=== PATIENT | male | born 1975 | race Hispanic/Latino ===

== ENCOUNTER 2017-05-14 22:14 | Emergency (ER) | payer OTHER ==
[2017-05-14 22:27] VITALS: RESP 20
[2017-05-14 22:41] LABS: BASO % 0.4 % (0.0-2.0); EOS # 0.2 K/uL (0.0-0.7); EOS % 2.6 % (0.0-4.0); HEMATOCRIT 40.9 % (35.0-51.0); LYMPH # 2.5 K/uL (1.0-4.3); LYMPH % 31.7 % (20.0-40.0); MEAN CELL VOLUME 90.9 fL (80.0-94.0); MEAN CORPUSCULAR HEMOGLOBIN 30.7 pg (27.0-31.0); MEAN CORPUSCULAR HGB CONC 33.8 g/dL (33.0-37.0); MEAN PLATELET VOLUME 9.5 fL (7.2-11.7); MONO # 0.9 K/uL (0.0-0.8); NRBC % 0.1 % (0.0-2.0); RED CELL DISTRIBUTION WIDTH 13.2 % (11.5-14.5); WHITE BLOOD COUNT 7.8 K/uL (4.8-10.8)
--- NOTE | 2017-05-14 22:44 | C.PDOC ---
History Of Present Illness The patient is brought to the ED by EMS for evaluation after he smoked marijuana and ingested some unknown pills for the first time earlier today. Patient became agitated at first and is refusing to answer any questions. Patient denies suicidal/homicidal ideation at this time. Time Seen by Provider: 05/14/17 22:44 Chief Complaint (Nursing): Substance Abuse History Per: Patient, EMS History/Exam Limitations: no limitations Onset/Duration Of Symptoms: Hrs Current Symptoms Are (Timing): Still Present Suicide/Self Injury Attempted (Context): None Modifying Factor(s): Marijuana, Other (unknown pills ) Severity: None Pain Scale Rating Of: 0 Associated Symptoms: Agitation. denies: Suicidal Thoughts, Suicidal Plan Involuntary Hold By: None Recent travel outside of the [place]: No Additional History Per: Patient Past Medical History Reviewed: Historical Data, Nursing Documentation, Vital Signs Vital Signs: Last Vital Signs Temp 98.2 F 05/15/17 00:18 Pulse 88 05/15/17 00:18 Resp 20 05/15/17 00:18 BP 135/80 05/15/17 00:18 Pulse Ox 100 05/15/17 00:18 - Medical History PMH: Anxiety, Benign Prostatic Hyperplasia, Depression, HTN Surgical History: No Surg Hx Family History: States: Hypertension - Social History Hx Alcohol Use: Yes Hx Substance Use: Yes Review Of Systems Constitutional: Negative for: Fever, Chills Cardiovascular: Negative for: Chest Pain, Palpitations Respiratory: Negative for: Cough, Shortness of Breath Gastrointestinal: Negative for: Nausea, Vomiting, Abdominal Pain Skin: Negative for: Rash, Lesions, Jaundice, Bruising Psych: Positive for: Other (agitation). Negative for: Suicidal ideation Physical Exam - Physical Exam Appears: Non-toxic, No Acute Distress Skin: Warm, Dry Head: Normacephalic Eye(s): bilateral: Normal Inspection Oral Mucosa: Moist Lips: Other (dry) Neck: Supple Chest: Symmetrical, No Deformity, No Tenderness Cardiovascular: Rhythm Regular, No Murmur Respiratory: No Rales, No Rhonchi, No Wheezing Gastrointestinal/Abdominal: Soft, No Tenderness, No Distention Back: Normal Inspection Extremity: Normal ROM, Capillary Refill (less than 2 seconds ) Extremity: Bilateral: Atraumatic Pulses: Left Dorsalis Pedis: Normal, Right Dorsalis Pedis: Normal Neurological/Psych: Oriented x3, Normal Speech Gait: Steady ED Course And Treatment - Laboratory Results Result Diagrams: 05/14/17 22:33 05/14/17 22:33 ECG: Interpreted By Me, Viewed By Me ECG Rhythm: Sinus Rhythm (100), ST/T Changes (lat ischemic changes, unchanged from 10/20/16) O2 Sat by Pulse Oximetry: 96 (on RA ) Pulse Ox Interpretation: Normal Progress Note: Bloodwork and EKG ordered. Lactated Ringers IV Solution adminsitered. Reevaluation Time: 00:22 Reassessment Condition: Improved Disposition Counseled Patient/Family Regarding: Studies Performed, Diagnosis, Need For Followup - Disposition Referrals: [facility] [Outside] [facility]ly [facility], [facility] [Outside] Disposition: HOME/ ROUTINE Disposition Time: 22:44 Condition: FAIR Instructions: Polysubstance Abuse (ED), Hypertension (DC) Forms: [employer] (Mal[place]ian) - Clinical Impression Clinical Impression: Drug abuse, Hypertension - Scribe Statement The provider has reviewed the documentation as recorded by the Scribe (Candy White) Provider Attestation: All medical record entries made by the Scribe were at my direction and personally dictated by me. I have reviewed the chart and agree that the record accurately reflects my personal performance of the history, physical exam, medical decision making, and the department course for this patient. I have also personally directed, reviewed, and agree with the discharge instructions and disposition.
[2017-05-14 22:49] LABS: ALB/GLOB RATIO 1.7 (1.0-2.1); ALCOHOL SERUM < 10 mg/dl (0-10); ALKALINE PHOSPHATASE 56 U/L (38-126); ALT/SGPT 42 U/L (21-72); AST/SGOT 25 U/L (17-59); BILIRUBIN,TOTAL 0.4 mg/dL (0.2-1.3); BLOOD UREA NITROGEN 20 mg/dL (9-20); CALCIUM 8.8 mg/dl (8.6-10.4); CARBON DIOXIDE 27 mmol/L (22-30); CHLORIDE 105 mmol/L (98-107); GFR AFRICAN-AMERICAN > 60; GLUCOSE,RANDOM 142 mg/dL (75-110); POTASSIUM 3.5 mmol/L (3.6-5.2); SODIUM 141 mmol/L (132-148)
[2017-05-14] MEDS ORDERED: Lactated Ringer's 1,000 ML IV ONE (22:50)
[2017-05-14 23:21] VITALS: TEMP 98.2
[2017-05-14] MEDS ORDERED: Labetalol 5 mg/ml Inj 20ML IV STA (23:51)
[2017-05-14] MEDS ORDERED: Labetalol 25mg/5ml Syringe ONE (23:51)
[2017-05-15 00:19] VITALS: BP 135/80; PULSE 88
[2017-05-15 00:25] VITALS: O2SAT 96
--- NOTE | 2017-05-15 12:29 | CARD ---
APPROVED REPORT EKG Measurement Heart [id number] <Conclusion> Normal sinus rhythm Possible Left atrial enlargement Cannot rule out Inferior infarct, age undetermined T wave abnormality, consider anterolateral ischemia Abnormal ECG
== END 2017-05-15 00:33 | disposition home or self-care (01) ==
LOC: C.ER 22:14
DX: I10 Essential (primary) hypertension (principal); F19.10 Other psychoactive substance abuse, uncomplicated; F41.9 Anxiety disorder, unspecified
CPT/HCPCS: 80053; 80320; 80324; 80345; 80346; 80349; 80353; 80358; 80361; 83992; 85025; 93005; 96360; 99285; J7120